=== PATIENT | male | born 1970 | race Caucasian/White ===

== ENCOUNTER 2016-07-29 16:10 | Emergency (ER) | payer OTHER ==
[2016-07-29 16:39] LABS: BILIRUBIN NEGATIVE (NEGATIVE); BLOOD 3+ Ery/uL (NEGATIVE); CLARITY CLEAR (CLEAR); COLOR YELLOW (YELLOW); GLUCOSE (U) NORMAL (NORMAL); KETONE (U) NEGATIVE (NEGATIVE); LEUKOCYTES NEGATIVE Leu/uL (NEGATIVE); NITRITE NEGATIVE (NEGATIVE); PROTEIN NEGATIVE (NEGATIVE); SPECIFIC GRAVITY 1.025 (1.001-1.030)
[2016-07-29 16:56] LABS: BASOPHIL 0.3 % (0-2); EOSINOPHIL 1.2 % (0-5); HCT 44.3 % (42.0-52.0); HGB 15.7 g/dl (13.2-18.0); LYMPHOCYTE 14.3 % (15-48); MCH 32.5 pg (25.0-31.0); MCHC 35.4 g/dL (32.0-36.0); MCV 91.7 fL (78.0-100.0); MONOCYTE 5.5 % (0-12); MPV 8.7 fL (6.0-9.5); NEUTROPHIL 78.7 % (41-80); PLT 250 K/uL (150-400); RBC 4.83 M/uL (4.70-6.00); RDW 12.7 % (11.5-14.0); WBC 12.8 K/uL (4.0-10.5)
[2016-07-29 16:56] LABS: BACTERIA 1+; URINARY RBC 20-50; URINARY WBC RARE
== END 2016-07-29 19:16 | disposition home or self-care (01) ==
LOC: FER 16:10
PROVIDERS: Emergency Medicine
DX: N13.2 Hydronephrosis with renal and ureteral calculous obstruction (principal); I10 Essential (primary) hypertension; F17.200 Nicotine dependence, unspecified, uncomplicated
CPT/HCPCS: 36415; 80048; 81001; 85025; J1885